=== PATIENT | male | born 1950 | race Caucasian/White ===

== ENCOUNTER → 2023-10-04 | Outpatient (REF) | payer MEDICARE, SELFPAY | LOC: DHSLP | PROVIDERS: ATTENDING PHYSICIAN Internal Medicine Critical Care Medicine; FAMILY PHYSICIAN Family Medicine | DX: G47.33 Obstructive sleep apnea (adult) (pediatric) (principal); R06.83 Snoring | CPT/HCPCS: 95800 ==

== ENCOUNTER → 2024-05-02 06:33 | Day surgery (SDC) | payer MEDICARE, SELFPAY ==
[2024-05-02 08:31] LABS: Glucose - Point of Care 127 mg/dl (70-99)
== END ==
LOC: GI 06:33
PROVIDERS: ATTENDING PHYSICIAN Specialist
DX: Z12.11 Encounter for screening for malignant neoplasm of colon (principal); K55.21 Angiodysplasia of colon with hemorrhage; K63.89 Other specified diseases of intestine; K57.30 Diverticulosis of large intestine without perforation or abscess without bleeding; R93.3 Abnormal findings on diagnostic imaging of other parts of digestive tract; Z86.010 Personal history of colon polyps
CPT/HCPCS: 45380; 45382; 88305; 82962

== ENCOUNTER 2024-07-22 09:13 | Emergency (ER) | payer MEDICARE, SELFPAY ==
[2024-07-22 09:27] VITALS: BP 134/68
--- NOTE | 2024-07-22 09:55 | ED.GENMED ---
History of Present Illness
General
Chief Complaint: Fainting/Passed Out
Source: patient
Time Seen by Provider: 07/22/24 09:39
History of Present Illness
History of Present Illness:
74-year-old male with past medical history of hyperlipidemia, [id number] diabetes and previous prostate cancer presenting to the emergency department for evaluation after a near syncopal event earlier this morning stating that he was
doing some puzzle games when he started to get a sudden onset of nausea, stood up from his desk and upon standing started to feel near syncopal stating he went down to his knees and everything went black for a couple of seconds and then symptoms
resolved. Patient went to the bathroom but states did not have much of a bowel movement and that his nausea had since fully subsided. Patient also notes he felt a little bit clammy during this time. Denies any history of similar. No fevers or
infectious symptoms but does note that multiple people they were with on did develop GI illness but all seem to fully improved and patient notes that he has not had any of these GI symptoms. He otherwise denies any chest pain,
palpitations, cough, URI-like symptoms, abdominal pain or any other symptoms presently.
Past History
Past History
ED Past Medical History: Cancer, Hypercholesterolemia and NIDDM
ED Past Surgical History: Urological
Social History
Tobacco: Non-smoker
Alcohol: Occasional
Drug: None
Personal:
Living: with family
Review of Systems
Review of Systems
All Other Systems: ROS reviewed and negative except as documented in HPI and ROS
Phy Exam
Physical Exam
Physical Exam:
GENERAL: Alert , in no apparent distress
EYE: conjunctiva clear
NECK: Supple
ENT: o/p clr, mmm.
CARDIAC: Regular rate and rhythm, no murmur
LUNGS: Clear breath sounds bilaterally, no acute respiratory distress, no wheezes/rales/rhonchi
ADBDOMEN: soft, normoactive bowel sounds, no ttp
NEUROLOGICAL: Alert and oriented
SKIN: Warm and dry, skin intact.
MUSCULOSKELETAL: well perfused.
PSYCH: Normal and appropriate interaction.
Scores
Heart Failure Risk
Heart Failure Risk Score: Not Applicable
Heart Score for Chest Pain Patients
STEMI patient?: Not applicable
Withdrawal Assessment of Alcohol
Withdrawal Assessment Completed?: Not applicable
Course
Orders/Labs/Results
Orders:
Orders
07/22/24 09:16
EKG [Electrocardiogram (*1)] Urgent
Reason for Study: Syncope
EKG- Treatment ONCE
07/22/24 09:52
Orthostatic VS- Treatment ONCE
07/22/24 10:17
Basic Metabolic Panel Urgent
Complete Blood Count/With Diff Urgent
Troponin I Urgent
Abnormal Lab Results
07/22/24
10:17
RBC 3.47 L 10^6/uL
(4.70-6.10)
Hgb 12.4 L g/dL
(13.0-18.0)
Hct 33.5 L %
(39.0-52.0)
MCV 96.5 H fL
(80.0-94.0)
MCH 35.7 H pg
(27.0-31.0)
Absolute Lymphs (auto) 0.2 L 10^3/uL
(1.2-3.4)
Neutrophils % 86.9 H %
(42.2-75.2)
Lymphocytes % 3.1 L %
(20.5-51.1)
Sodium 134 L mmol/L
(135-145)
Chloride 97 L mmol/L
(98-107)
BUN 21 H mg/dl
(9-20)
Glucose 152 H mg/dl
(70-99)
07/22/24 10:17
07/22/24 10:17
Vital Signs
Initial and Last Documented VS:
Initial Vital Signs
Temp Pulse Resp BP Pulse Ox
98.3 F 94 16 134/68 98
07/22/24 09:27 07/22/24 09:27 07/22/24 09:27 07/22/24 09:27 07/22/24 09:27
Last Documented Vital Signs
Temp Pulse Resp BP Pulse Ox
98.3 F 84 13 136/71 96
07/22/24 09:27 07/22/24 11:30 07/22/24 11:30 07/22/24 11:00 07/22/24 11:30
MDM/Problems Addressed
Differential Diagnosis Includes:
orthostasis, vagal event, cardiac arrhythmia, no findings to suggest ACS, electrolyte disturbance
MDM/Problems Addressed:
74-year-old male presenting to the emergency department for evaluation of near syncopal event that occurred earlier this morning, noted nausea and clamminess with the symptoms now fully resolved. Patient hemodynamically stable and in no acute
distress. Recent sick contacts with GI symptoms however patient denies this for himself. EKG done in triage shows normal sinus rhythm, no ectopy and no signs of ischemia. Patient is concerned for possible ischemic event however based off symptoms
I am less suspicious for this. Will check labs and orthostatics. Patient remains asymptomatic and no significant findings anticipate discharge home and outpatient management/follow-up.
*Pulse Oximetry
Patient hypoxic: no
*EKG
Interpreted by ED Provider?: Yes
Heart Rate: 89
Rate: normal
Rhythm: sinus
[place]: normal axis
Ischemia: no ischemia
*Critical Care Note
Total Time (30-74mins, 75-104mins- exclusive of procedures): Not Applicable
Patient Management
Escalation/DeEscalation of care consider admission/obs:
Patient's workup unremarkable for any acute pathologies. Orthostatics were unremarkable and patient continues to feel well. At this time I do think it is reasonable for patient to be discharged home and follow-up with primary care provider as
needed. He is aware of return precautions.
ED Attending Note
-
Portions of this chart may have been created with voice recognition software.� Occasional wrong word or��sound alike� substitutions may have occurred due to the inherent limitations of voice recognition software.
Discharge Plan
Departure
Patient Disposition: Home (Routine Discharge)
Date of Disposition: 07/22/24
Time of Disposition: 11:04
Patient with high blood pressure during this ER visit?: No
Discharge Problem:
Near syncope
Instructions: Syncope (Fainting) (DC)
Referrals:
Don Crowder MD [Family Provider] -
Interventions
Interventions:
*Risk Screen - Suicide Last Done: 07/22/24 09:27
*Neglect/Abuse Screening Last Done: 07/22/24 09:27
Discharge Date and Time
Print Language: [place]
[2024-07-22 10:00] VITALS: BMI 29.4
[2024-07-22 10:27] VITALS: BP 109/67; BP 113/62; BP 134/65; PULSE 105; PULSE 87; PULSE 95
[2024-07-22 10:29] VITALS: BP 113/62
[2024-07-22 10:30] VITALS: BP 109/67
[2024-07-22 10:33] LABS: % Basophils 0.2 % (0-2); % Eosinophils 3.7 % (0-6); % Immature Granulocytes 0.3 % (0-0.5); % Lymphocytes 3.1 % (20.5-51.1); % Monocytes 5.8 % (1.7-9.3); % Neutrophils 86.9 % (42.2-75.2); Absolute Eosinophils 0.2 10^3/uL (0-0.7); Absolute Lymphocytes 0.2 10^3/uL (1.2-3.4); Absolute Monocytes 0.3 10^3/uL (0.1-0.6); Hematocrit 33.5 % (39.0-52.0); Hemoglobin 12.4 g/dL (13.0-18.0); Mean Corpuscular Hgb 35.7 pg (27.0-31.0); Mean Corpuscular Volume 96.5 fL (80.0-94.0); Mean Platelet Volume 8.1 fL (7.4-10.4); Nucleated Red Blood Cells % 0 % (-); Platelet Count 201 10^3/uL (130-400); Red Blood Cell Count 3.47 10^6/uL (4.70-6.10); Red Cell Dist. Width 11.9 % (11.5-14.5); White Blood Cell Count 5.7 10^3/uL (4.8-10.8)
[2024-07-22 10:37] VITALS: BP 129/72
[2024-07-22 10:43] LABS: Blood Urea Nitrogen 21 mg/dl (9-20); Calcium 9.4 mg/dl (8.4-10.2); Carbon Dioxide 27 mmol/L (22-30); Chloride 97 mmol/L (98-107); Estimated Creatinine Clearance 94 ml/min; Glucose 152 mg/dl (70-99); Potassium 3.9 mmol/L (3.5-5.1); Sodium 134 mmol/L (135-145); eGFR > 60.00
[2024-07-22 10:56] LABS: Troponin I < 0.012 ng/ml
[2024-07-22 11:00] VITALS: BP 136/71
== END 2024-07-22 11:15 | disposition home or self-care (01) ==
LOC: EMR 09:13
PROVIDERS: Physician Assistant Medical; EMERGENCY PHYSICIAN Student in an Organized Health Care Education/Training Program; FAMILY PHYSICIAN Family Medicine
DX: R55 Syncope and collapse (principal); E78.00 Pure hypercholesterolemia, unspecified; E11.9 Type 2 diabetes mellitus without complications; Z85.46 Personal history of malignant neoplasm of prostate
CPT/HCPCS: 99284; 80048; 84484; 85025; 93005

== ENCOUNTER → 2025-01-02 11:31 | Outpatient (REF) | payer MEDICARE, SELFPAY | LOC: HWRAD 11:31 | PROVIDERS: ATTENDING PHYSICIAN Family Medicine; REFERRING PHYSICIAN Internal Medicine | DX: R05.9 Cough, unspecified (principal) | CPT/HCPCS: 71046 ==